=== PATIENT | female | born 1960 | race African-American/Black ===

== ENCOUNTER 2023-09-06 19:19 | Emergency (ER) | payer MEDICAID, OTHER ==
[~2023-09-06] VITALS: Ht 172.7 cm; Wt 91.0 kg
[2023-09-06 19:25] VITALS: RESP 16
[2023-09-06 19:47] VITALS: BP 160/101; PULSE 66; TEMP 99.4; O2SAT 100
[2023-09-06] MEDS ORDERED: ACETAMINOPHEN 325MG TABLET PO ONE (21:30)
[2023-09-06] MEDS ORDERED: NAPR-1176 MT (23:01)
[2023-09-06] MEDS ORDERED: SULF1TAB48 MT (23:18)
== END 2023-09-06 23:21 | disposition home or self-care (01) ==
LOC: ER 19:19
DX: R59.0 Localized enlarged lymph nodes (principal); D64.9 Anemia, unspecified; I10 Essential (primary) hypertension; Z85.9 Personal history of malignant neoplasm, unspecified; Z90.710 Acquired absence of both cervix and uterus; D49.9 Neoplasm of unspecified behavior of unspecified site
CPT/HCPCS: 76857; 99284